=== PATIENT | male | born 1990 | race Caucasian/White ===

== ENCOUNTER 2018-03-09 10:12 | Emergency (ER) | payer MEDICAID ==
[~2018-03-09] VITALS: Ht 175.3 cm; Wt 68.0 kg
[2018-03-09 10:42] VITALS: BP 127/92
== END 2018-03-09 11:48 | disposition home or self-care (01) ==
LOC: ER 10:17
DX: S01.23XA Puncture wound without foreign body of nose, initial encounter (principal); X99.1XXA Assault by knife, initial encounter; Y93.01 Activity, walking, marching and hiking; Y92.61 Building [any] under construction as the place of occurrence of the external cause; Y99.8 Other external cause status
CPT/HCPCS: 70450

== ENCOUNTER 2020-09-11 10:34 | Emergency (ER) | payer MEDICAID ==
[~2020-09-11] VITALS: Ht 175.3 cm; Wt 68.0 kg
[2020-09-11 10:36] VITALS: BP 130/58
[2020-09-11] MEDS ORDERED: HYDROcodone-ACET 5/325MG TAB PO ONE (13:15)
== END 2020-09-11 13:30 | disposition left against medical advice (07) ==
LOC: ER 10:34
DX: G91.8 Other hydrocephalus (principal)
CPT/HCPCS: 70450